=== PATIENT | male | born 1975 | race Caucasian/White ===

== ENCOUNTER → 2017-09-20 | Outpatient (CLI) | payer OTHER ==
[~2017-09-20] MED LIST: DAYPRO600 M1 PO; NKHM; PREDNISONE20 MG PO; ROBAXIN750 MG PO; ZYRTEC10 M1 PO
== END | disposition home or self-care (01) ==
LOC: MRI 14:55
DX: D35.2 Benign neoplasm of pituitary gland (principal); H53.8 Other visual disturbances

== ENCOUNTER → 2019-10-09 | Outpatient (CLI) | payer OTHER | END | disposition home or self-care (01) | LOC: US 10:30 | DX: R94.5 Abnormal results of liver function studies (principal) ==